=== PATIENT | male | born 1985 | race Caucasian/White ===

== ENCOUNTER 2017-02-19 19:28 | Emergency (ER) | payer OTHER ==
[2017-02-19 19:55] VITALS: BP 124/77
[2017-02-19] MEDS ORDERED: Ondansetron TAB* 4 MG PO ONE (21:10)
[2017-02-19] MEDS ORDERED: Ondansetron ODT TAB* 4 MG SL PRN (21:26)
[2017-02-19] MEDS ORDERED: Ondansetron ODT TAB* 4 MG ONE (21:35)
--- NOTE | 2017-02-19 21:40 | UC ---
Abdominal Pain Male HPI - HPI Summary HPI Summary: 31 y/o male presents to the urgent care c/o 6 episodes of vomiting and 1 episode of diarrhea today. Pt reports he ate some left overs last night and this morning his vomiting started. He has drank gatorade, but he feels a little weak. Patient denies fever, SOB, chest pain. - History of Current Complaint Chief Complaint: UCGeneralIllness Stated Complaint: VOMITING Time Seen by Provider: 02/19/17 20:57 Hx Obtained From: Patient Onset/Duration: Sudden Onset, Lasting Hours, Still Present Severity Initially: Moderate Severity Currently: Moderate Pain Intensity: 0 Pain Scale Used: 0-10 Numeric - Allergies/Home Medications Allergies/Adverse Reactions: Allergies Allergy/AdvReac Type Severity Reaction Status Date / Time No Known Allergies Allergy Verified 02/19/17 19:48 Home Medications: Home Medications Ibuprofen [Ibuprofen 200 MG] 200 mg PO Q6HR PRN 02/19/17 [History Confirmed ] PMH/Surg Hx/FS Hx/Imm Hx - Surgical History Surgical History: Yes Surgery Procedure, Year, and Place: ear tubes - Social History Alcohol Use: Occasionally Substance Use Type: None Smoking Status (MU): Former Smoker Review of Systems Respiratory: Negative Cardiovascular: Negative Gastrointestinal: Vomiting, Diarrhea Genitourinary: Negative Motor: Negative Neurovascular: Negative Musculoskeletal: Negative Neurological: Negative Psychological: Negative All Other Systems Reviewed And Are Negative: Yes Physical Exam Triage Information Reviewed: Yes Appearance: Well-Appearing, No Pain Distress, Well-Nourished, Obese Vital Signs: Initial Vital Signs Temp 99.0 F 02/19/17 19:49 Pulse 108 02/19/17 19:49 Resp 16 02/19/17 19:49 BP 124/77 02/19/17 19:49 Pulse Ox 97 02/19/17 19:49 Vital Signs Reviewed: Yes Eye Exam: Normal Eyes: Positive: Conjunctiva Clear - no signs of dehydration ENT: Positive: Normal ENT inspection, Hearing grossly normal, Pharynx normal, TMs normal Dental Exam: Normal Neck exam: Normal Neck: Positive: Supple, Nontender, No Lymphadenopathy Respiratory Exam: Normal Respiratory: Positive: Chest non-tender, Lungs clear, Normal breath sounds Cardiovascular Exam: Normal Cardiovascular: Positive: RRR, No Murmur, Pulses Normal Abdominal Exam: Normal Abdomen Description: Positive: Nontender, No Organomegaly, Soft. Negative: CVA Tenderness (R), CVA Tenderness (L) Bowel Sounds: Positive: Present Musculoskeletal Exam: Normal Neurological Exam: Normal Psychological Exam: Normal Skin Exam: Normal Abd Pain Male Course/Dx - Course Course Of Treatment: Nausea, vomiting and diarrhea:31 y/o male presents to the urgent care c/o 6 episodes of vomiting and 1 episode of diarrhea today. Pt reports he ate some left overs last night and this morning his vomiting started. He has drank gatorade, but he feels a little weak. Patient denies fever, SOB, chest pain. Zofran 4mg PO once given to Pt to alleviate symptoms. Patient tolerated well medication and symptoms of Nausea and vomiting improved. Most likely food poisoning. - Differential Dx/Clinical Impression Differential Diagnosis/HQI/PQRI: Appendicitis, Peptic Ulcer Disease, Other - gastroenteritis Provider Diagnoses: Nausea, vomiting and diarrhea Discharge - Discharge Plan Condition: Stable Disposition: HOME Prescriptions: Ondansetron TAB* [Zofran 4 MG Tab*] 4 mg PO Q6H PRN #10 tab PRN Reason: Vomiting Patient Education Materials: Gastroenteritis (ED) Referrals: [facility] [Outside] No Primary Care Phys,NOPCP [Primary Care Provider] - Additional Instructions: Please take medication as directed to alleviate symptoms. Increase fluid intake , take pedylite to replenish electrolytes. do not eat heavy meal until symptoms resolve. If symptoms worsen please return to urgent care or to the nearest ED for further treatment.
== END 2017-02-19 21:52 | disposition home or self-care (01) ==
LOC: UCEAST 19:28
DX: R11.2 Nausea with vomiting, unspecified (principal); R19.7 Diarrhea, unspecified; Z87.891 Personal history of nicotine dependence
CPT/HCPCS: 99202; A9270-GY; G0463

== ENCOUNTER 2019-11-09 12:18 | Emergency (ER) | payer OTHER ==
[2019-11-09 12:41] VITALS: BP 154/99
[2019-11-09] MEDS ORDERED: Tetan/Diph/Pertus SYR(Tdap)* 0.5 ML SYR(BOOSTRIX) use SYR contains LATEX IM ONE (12:43)
--- NOTE | 2019-11-09 13:03 | UC ---
Laceration HPI - HPI Summary HPI Summary: 34 yo male presents with LEFT thumb laceration. 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 Bandaged the area and came to . Unsure date of last tetanus. He is right handed. - History Of Current Complaint Chief Complaint: UCLaceration Stated Complaint: THUMB LACERATION Time Seen by Provider: 11/09/19 13:03 Hx Obtained From: Patient Laceration Location: Finger Mechanism Of Injury: Sharp Trauma Onset/Duration: Sudden Onset Pain Intensity: 0 - Allergies/Home Medications Allergies/Adverse Reactions: Allergies Allergy/AdvReac Type Severity Reaction Status Date / Time No Known Allergies Allergy Verified 11/09/19 12:41 Home Medications: Home Medications NK [No Home Medications Reported] 11/09/19 [History Confirmed 11/09/19] PMH/Surg Hx/FS Hx/Imm Hx - Additional Past Medical History Additional PMH: None - Surgical History Surgical History: Yes Surgery Procedure, Year, and Place: ear tubes - Family History Known Family History: Positive: None - Social History Lives: With Family Alcohol Use: Rare Substance Use Type: None Smoking Status (MU): Former Smoker Review of Systems All Other Systems Reviewed And Are Negative: No Constitutional: Positive: Negative Skin: Positive: Other - Thumb laceration Respiratory: Positive: Negative Cardiovascular: Positive: Negative Musculoskeletal: Positive: Negative Neurological/Mental Status: Positive: Negative Psychological: Positive: Negative Physical Exam - Summary Physical Exam Summary: GENERAL: NAD. WDWN. No pain distress. SKIN: LEFT THUMB: Dorsal aspect with 2.0cm linear laceration partial thickness extending vertically along proximal phalanx without joint involvement. No bony or tendon involvement. CHEST: No accessory muscle use. Breathing comfortably and in no distress. CV: Pulses intact radial and ulnar. Cap refill <2seconds MSK: LEFT THUMB: FROM. Strength 5/5 including chief clerk strength. NEURO: Alert. Sensations intact hand and all fingers. PSYCH: Age appropriate behavior. Triage Information Reviewed: Yes Vital Signs: Initial Vital Signs Temp 98.9 F 11/09/19 12:37 Pulse 85 11/09/19 12:37 Resp 18 11/09/19 12:37 BP 154/99 11/09/19 12:37 Pulse Ox 99 11/09/19 12:37 NK [No Home Medications Reported] 11/09/19 [History Confirmed 11/09/19] Vital Signs Reviewed: Yes Laceration Repair - Laceration Repair 1 Description: Linear Laceration Size After Repair: Length (cm) - 2.0 Anesthesia Used: 2.0% Lido Irrigation With Pressure Irrigation Device: Yes Closure Material: Sutures - #4 Closure Method: Single Layer Suture Of: Skin Suture Type: Prolene - 5-0 Laceration Course/Dx - Course/Dx Course Of Treatment: The procedure was explained to the pt and all questions were answered. A time out was performed, witnessed, and signed. The area was irrigated with 200mL sterile saline. 2mL of 2% lidocaine without epi was administered and good anesthetization was achieved. The wound was explored. In the usual sterile fashion, FOUR 5-0 prolene interrupted sutures were placed. Homeostasis achieved. The wound was bandaged with telfa and tubegauze . Pt tolerated procedure well. tdap updated today - Diagnosis Provider Diagnosis: Thumb laceration Discharge ED - Sign-Out/Discharge Documenting (check all that apply): Patient Departure All imaging exams completed and their final reports reviewed: No Studies - Discharge Plan Condition: Stable Disposition: HOME Patient Education Materials: Care For Your Stitches (ED), Laceration (ED) Forms: *Work Release Referrals: No Primary Care Phys,NOPCP [Primary Care Provider] - Additional Instructions: If you develop a fever, shortness of breath, chest pain, new or worsening symptoms - please call your PCP or go to the ED immediately. Your blood pressure was high at todays visit. Please see your primary provider within 4 weeks for recheck and re-evaluation. 1) Please keep the area bandage, clean, dry, and intact for the next 24- 48hours. Then change the bandage daily until sutures are removed. 2) If you develop a fever, colored or thick discharge, increased pain or swelling - please call your PCP or return for a wound check. 3) Please return in 10-14 days to have your FOUR sutures removed. - Billing Disposition and Condition Condition: STABLE Disposition: Home
[2019-11-09] MEDS ORDERED: Lidocaine 2% PF * 5 ML VIAL INJ ONE (13:08)
== END 2019-11-09 13:55 | disposition home or self-care (01) ==
LOC: UCEAST 12:18
DX: S61.012A Laceration without foreign body of left thumb without damage to nail, initial encounter (principal); Z87.891 Personal history of nicotine dependence; W31.1XXA Contact with metalworking machines, initial encounter; Y93.89 Activity, other specified; Y92.9 Unspecified place or not applicable; Y99.0 Civilian activity done for income or pay
CPT/HCPCS: 12001; 90715; 99201; G0463

== ENCOUNTER 2019-11-20 19:24 | Emergency (ER) | payer OTHER ==
[2019-11-20 19:45] VITALS: BP 164/104
--- NOTE | 2019-11-20 19:56 | UC ---
HPI Wound/Suture Re-check - HPI Summary HPI Summary: had 4 sutures placed in L thumb 11 days ago and needs sutures removed. he states earlier today he saw some white drainage from wound after he squeezed it. none since. - History Of Current Complaint Chief Complaint: UCLaceration Stated Complaint: SUTURE REMOVAL, POSS INFECTION Time Seen by Provider: 11/20/19 19:27 Hx Obtained From: Patient Onset/Duration: Sudden Onset - 11 days ago Pain Intensity: 2 - Allergies/Home Medications Allergies/Adverse Reactions: Allergies Allergy/AdvReac Type Severity Reaction Status Date / Time No Known Allergies Allergy Verified 11/20/19 19:40 Home Medications: Home Medications Ibuprofen TAB* [Advil TAB*] 600 mg PO Q6H PRN 11/20/19 [History Confirmed ] PMH/Surg Hx/FS Hx/Imm Hx Previously Healthy: Yes - Surgical History Surgical History: Yes Surgery Procedure, Year, and Place: ear tubes - Family History Known Family History: Positive: None - Social History Occupation: Employed Full-time Lives: With Family Alcohol Use: Rare Substance Use Type: None Smoking Status (MU): Former Smoker Review of Systems All Other Systems Reviewed And Are Negative: Yes Constitutional: Positive: Negative. Negative: Fever, Chills Respiratory: Positive: Negative Cardiovascular: Positive: Negative Musculoskeletal: Positive: Negative. Negative: Decreased ROM Psychological: Positive: Negative Is Patient Immunocompromised?: No Physical Exam Triage Information Reviewed: Yes Appearance: Well-Appearing, No Pain Distress, Well-Nourished Vital Signs: Initial Vital Signs Temp 96.8 F 11/20/19 19:36 Pulse 89 11/20/19 19:36 Resp 16 11/20/19 19:36 BP 164/104 11/20/19 19:36 Pulse Ox 98 11/20/19 19:36 Vital Signs Reviewed: Yes Respiratory Exam: Normal Cardiovascular Exam: Normal Musculoskeletal Exam: Normal Musculoskeletal: Positive: ROM Intact Neurological Exam: Normal Neurological: Positive: Alert Psychological Exam: Normal Skin Exam: Other - well healing laceration L thumb with 4 sutures intact, wound margins well approximated and dry no drainage visible and unable to express any with manual pressure Course/Dx - Course Course Of Treatment: wound cleansed with NSS. 4 sutures removed w/o difficulty bacitracin ointment and bandaid applied - Diagnosis Provider Diagnosis: Visit for suture removal Discharge ED - Sign-Out/Discharge Documenting (check all that apply): Patient Departure All imaging exams completed and their final reports reviewed: No Studies - Discharge Plan Condition: Good Disposition: HOME Patient Education Materials: Stitches Removal (ED) Referrals: No Primary Care Phys,NOPCP [Primary Care Provider] - Additional Instructions: keep wound clean and dry. apply a thin spread of antibiotic ointment every day for 3-4 days report signs infection - Billing Disposition and Condition Condition: GOOD Disposition: Home
== END 2019-11-20 20:00 | disposition home or self-care (01) ==
LOC: UCEAST 19:24
DX: S61.012D Laceration without foreign body of left thumb without damage to nail, subsequent encounter (principal); Z87.891 Personal history of nicotine dependence; X58.XXXD Exposure to other specified factors, subsequent encounter